=== PATIENT | male | born 1990 | race Caucasian/White ===

== ENCOUNTER 2020-08-09 23:41 | Emergency (ER) | payer OTHER ==
[~2020-08-09] VITALS: Ht 188 cm; Wt 63.5 kg
[2020-08-10 00:32] VITALS: Ht 188 cm; Wt 63.5 kg
[2020-08-10 00:42] VITALS: BP 122/79
== END 2020-08-10 00:43 | disposition other institution (70) ==
LOC: ED 23:41
DX: Z02.89 Encounter for other administrative examinations (principal)